=== PATIENT | female | born 1990 | race African-American/Black ===

== ENCOUNTER 2016-10-27 16:00 | Emergency (ER) | payer OTHER ==
[2016-10-27 16:27] VITALS: TEMP 99.1; BMI 44.9
[2016-10-27] MEDS ORDERED: FAMOTIDINE 20 MG/50 ML IVPB 20 MG in PREMIX 50 IVPB ONE (16:39)
[2016-10-27] MEDS ORDERED: MAG HYDROX/AL HYDROX/SIMETH 355 ML ORAL.SUSP PO ONE (16:39)
[2016-10-27] MEDS ORDERED: SODIUM CHLORIDE 1,000 ML IV ONE (16:39)
--- NOTE | 2016-10-27 16:43 | PDOC ---
History of Present Illness - General History Source: Patient Exam Limitations: No Limitations - History of Present Illness Initial Comments: 10/27/16 17:51 The patient is a 25 year old female with no significant past medical history who presents to the emergency department with abdominal pain. Patient states that the abdominal pain is localized to the upper abdomen, numbing and tingling in nature, constant, radiating across the abdomen and 'feels like something is moving around in there'. Patient has concerns about being , she states that she has been sexually active, and has taken 3 at home tests at home that were negative. She denies fever, chills, SOB, nausea, vomiting, diarrhea, constipation or back pain. <Moriah Anton - Last Filed: 10/27/16 17:51> <Nicolas Graf - Last Filed: 10/27/16 23:10> - General Chief Complaint: Chest Pain Stated Complaint: CHEST PAIN/ABD PAIN Time Seen by Provider: 10/27/16 16:14 Past History <Moriah Anton - Last Filed: 10/27/16 17:51> - Past Medical History Asthma: No Cancer: No Cardiac Disorders: No Diabetes: No HTN: No Seizures: No Thyroid Disease: No - Psycho/Social/Smoking Cessation Hx Suicidal Ideation: No Smoking History: Never smoked Have you smoked in the past 12 months: No Hx Alcohol Use: No Drug/Substance Use Hx: No Hx Substance Use Treatment: No <Nicolas Graf - Last Filed: 10/27/16 23:10> - Past Medical History Allergies/Adverse Reactions: Allergies Allergy/AdvReac Type Severity Reaction Status Date / Time No Known Allergies Allergy Verified 10/27/16 17:17 Home Medications: Ambulatory Orders NK [No Known Home Medication] 10/27/16 Review of Systems - Review of Systems Able to Perform ROS?: Yes Comments:: 10/27/16 17:52 CONSTITUTIONAL: No reported: Fever, Chills, Diaphoresis, Generalized Weakness, Malaise, Loss of Appetite HEENT: No reported: Rhinorrhea, Nasal Congestion, Throat Pain, Throat Swelling, Difficulty Swallowing, Mouth Swelling, Ear Pain, Eye Pain, Visual Changes CARDIOVASCULAR: No reported: Chest Pain, Syncope, Palpitations, Irregular Heart Rate, Lightheadedness, Peripheral Edema RESPIRATORY: No reported: Cough, Shortness of Breath, SOB with Exertion, Orthopnea, Wheezing , Stridor, Hemoptysis GASTROINTESTINAL: Present: abdominal pain No reported: Abdominal Distension, Nausea, Vomiting, Diarrhea, Constipation, Melena, Hematochezia GENITOURINARY: No reported: Dysuria, Frequency, Urgency, Hesitancy, Flank Pain, Genital Pain MUSCULOSKELETAL: No reported: Myalgia, Arthralgia, Joint Swelling, Back pain, Neck Pain SKIN: No reported: Rash, Itching, Pallor HEMEATOLOGIC/IMMUNOLOGIC: No reported: Easy Bleeding, Easy Bruising, Lymphadenopathy, Frequent infections ENDOCRINE: No reported: Unexplained Weight Gain, Unexplained Weight Loss, Heat Intolerance , Cold Intolerance NEUROLOGIC: No reported: Headache, Focal Weakness, Paresthesias, Vertigo, Lightheadedness, Unsteady Gait, Seizure, Mental Status Changes, Incontinence PSYCHIATRIC: No reported: Anxiety, Depression <Moriah Anton - Last Filed: 10/27/16 17:51> *Physical Exam - Vital Signs Last Vital Signs Temp Pulse Resp BP Pulse Ox 99.1 F 83 18 124/67 98 10/27/16 16:25 10/27/16 16:25 10/27/16 16:25 10/27/16 16:25 10/27/16 16:25 - Physical Exam Comments: 10/27/16 17:52 GENERAL: The patient is awake, alert, and fully oriented, Nontoxic - in no acute distress, obese HEAD: Normocephalic, atraumatic. EYES: extraocular movements intact, sclera anicteric, conjunctiva clear. ENT: Normal voice, Moist mucous membranes. NECK: Normal range of motion, supple LUNGS: Breath sounds equal, clear to auscultation bilaterally. No wheezes, no rhonchi, no rales. HEART: Regular rate and rhythm, normal S1 and S2 without murmur, rub or gallop. ABDOMEN: Soft, nontender, normoactive bowel sounds. No guarding, no rebound. No CVA tenderness EXTREMITIES: Normal range of motion, no edema. No clubbing or cyanosis. No cords, erythema, or tenderness. NEUROLOGICAL: No facial assymetry, Normal speech, PSYCH: Normal mood, normal affect. SKIN: Warm, Dry, normal turgor <Moriah Anton - Last Filed: 10/27/16 17:51> - Vital Signs Last Vital Signs Temp Pulse Resp BP Pulse Ox 99.1 F 83 18 124/67 98 10/27/16 16:25 10/27/16 16:25 10/27/16 16:25 10/27/16 16:25 10/27/16 16:25 <Nicolas Graf - Last Filed: 10/27/16 23:10> Heart Score/ECG Review - ECG Intrepretation Rhythm: Regular Rhythm - [place]: Normal - ECG Impressions Comment:: 10/27/16 23:09 Twelve-lead EKG was performed and reviewed by me. There is normal sinus rhythm with a normal rate. Rate of 80 The axis is normal. <Nicolas Graf - Last Filed: 10/27/16 23:10> ED Treatment Course - LABORATORY CBC & Chemistry Diagram: 10/27/16 17:05 10/27/16 17:05 - ADDITIONAL ORDERS Additional order review: Laboratory Results 10/27/16 10/27/16 17:05 15:20 Sodium 141 Potassium 3.8 Chloride 105 Carbon Dioxide 27 Anion Gap 9 BUN 6 L D Creatinine 0.8 Creat Clearance w eGFR > 60 Random Glucose 81 Calcium 9.1 Total Bilirubin 0.3 AST 17 D ALT 23 D Alkaline Phosphatase 76 D Total Protein 7.6 Albumin 3.7 Lipase 63 L Urine Color Yellow Urine Appearance Clear Urine pH 5.0 Urine Protein Negative Urine Glucose (UA) Negative Urine Ketones Negative Urine Blood 1+ H Urine Nitrite Negative Urine Bilirubin Negative Urine Urobilinogen Negative Ur Leukocyte Esterase Negative Urine RBC 17 Urine WBC 1 Ur Epithelial Cells Few Urine Mucus Rare Urine HCG, Qual Negative 10/27/16 17:05 RBC 4.48 MCV 76.6 L MCHC 31.1 L RDW 17.5 H D MPV 8.4 Neutrophils % 76.1 Lymphocytes % 16.0 D Monocytes % 5.3 Eosinophils % 2.0 Basophils % 0.6 - Medications Given in the ED: ED Medications Discontinued Medications Generic Name Dose Route Start Last Admin Trade Name Freq PRN Reason Stop Dose Admin Al Hydroxide/Mg Hydroxide 30 ml 10/27/16 16:39 10/27/16 17:15 Mylanta Suspension - PO 10/27/16 16:40 30 ml ONCE ONE Administration Famotidine/Sodium Chloride 20 50 mls @ 100 mls/hr 10/27/16 16:39 10/27/16 17:15 mg/ Miscellaneous IVPB 10/27/16 17:08 100 mls/hr ONCE ONE Administration Sodium Chloride 1,000 mls @ 1,000 mls/hr 10/27/16 16:39 10/27/16 17:11 Normal Saline - IV 10/27/16 17:38 1,000 mls/hr .Q1H ONE Administration <Moriah Anton - Last Filed: 10/27/16 17:51> - LABORATORY CBC & Chemistry Diagram: 10/27/16 17:05 10/27/16 17:05 <Nicolas Graf - Last Filed: 10/27/16 23:10> Medical Decision Making - Medical Decision Making 10/27/16 16:40 25y F presents for evaluation abdominal pain, pt states that she had th sensation of something 'moving around' in her abdomen and has a senation of tingling/numbness on her abdomen and chest. The pt does endorse feeling alittle dizzy when she stood up earlier. There is no associated cp, sob, n/v, hemoptysis, leg swelling, vag bleeding. The pt has an unremarkable exam. differential includes gastritis, , pancreatitis will obtain blood work including lipase, cbc, cmp, ua, hcg, ekg will give fluids, pepcid, maalox will raessess 10/27/16 19:40 labs reviewed noted for mild leukocytosis not preg no uti after discussion with the pt she erally just wants to find out whether she is . 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 I answered all of the patient's questions. The patient was satisfied with the care received and felt comfortable with the discharge plan and treatment plan. The patient will call their primary care physician within 24 hours to arrange follow-up and will return to the Emergency Department with any new, persistent or worsening symptoms. <Nicolas Graf - Last Filed: 10/27/16 23:10> *DC/Admit/Observation/Transfer - Attestations Scribe Attestion: 10/27/16 17:52 Documentation prepared by LILY Mclean, acting as biomedical manager for Nicolas Graf MD. <Moriah Anton - Last Filed: 10/27/16 17:51> - Discharge Dispostion Admit: No <Nicolas Graf - Last Filed: 10/27/16 23:10> Diagnosis at time of Disposition: Abdominal discomfort - Discharge Dispostion Disposition: HOME Condition at time of disposition: Improved - Referrals Referrals: Tameka Ramos MD [Primary Care Provider] - - Patient Instructions Printed Discharge Instructions: DI for Abdominal Pain-Adult Additional Instructions: Return to the emergency department immediately with ANY new, persistent or worsening symptoms including worsening abdominal pain, fevers, inability to tolerate oral intake, chest pain, shortness of breath or any other concerns. Stay well hydrated. You MUST call and follow up with your doctor tomorrow. Your emergency department visit is not complete without a followup with your doctor for reevaluation. Please make sure your doctor reviews the results of your emergency evaluation. Print Language: HONDURAN
[2016-10-27] MEDS ORDERED: FAMOTIDINE 20 MG/50 ML IVPB 50 ML IVPB ONE (17:12)
[2016-10-27] MEDS ORDERED: MAG HYDROX/AL HYDROX/SIMETH 30 ML UNIT-DOSE CUP ONE (17:12)
[2016-10-27 17:20] LABS: BASOPHIL 0.6 % (0-2.0); MCH 23.8 pg (25.7-33.7); MCHC 31.1 g/dl (32.0-36.0); MEAN CELL VOLUME 76.6 fl (80-96); MEAN PLT VOLUME 8.4 fl (7.5-11.1); NEUTROPHILS 76.1 % (42.8-82.8); PLATELET COUNT 379 K/MM3 (134-434); RDW 17.5 % (11.6-15.6); WHITE BLOOD COUNT 13.3 K/mm3 (4.0-10.0)
[2016-10-27 17:20] LABS: URINE APPEARANCE CLEAR; URINE BILIRUBIN NEGATIVE (NEGATIVE); URINE BLOOD 1+ (NEGATIVE); URINE COLOR YELLOW; URINE GLUCOSE (UA) NEGATIVE (NEGATIVE); URINE KETONE NEGATIVE (NEGATIVE); URINE LEUK ESTERASE NEGATIVE (NEGATIVE); URINE NITRITE NEGATIVE (NEGATIVE); URINE PROTEIN NEGATIVE (NEGATIVE); URINE UROBILINOGEN NEGATIVE E.U./dl (0.2-1.0)
[2016-10-27 17:21] LABS: URINE MUCUS RARE; URINE RBC 17 /hpf (0-3); URINE WBC 1 /hpf (3-5)
[2016-10-27 17:45] LABS: ALBUMIN 3.7 g/dl (3.4-5.0); ANION GAP 9 (8-16); BILIRUBIN,TOTAL 0.3 mg/dL (0.2-1.0); CALCIUM 9.1 mg/dL (8.5-10.1); CO2 27 mmol/L (21-32); COCKROFT - GAULT 207.825; CREATININE 0.8 mg/dL (0.55-1.02); GLUCOSE,RANDOM 81 mg/dL (74-106); SGOT/AST 17 U/L (15-37); SGPT/ALT 23 U/L (12-78); TOT PROT 7.6 g/dl (6.4-8.2)
[2016-10-27 17:46] LABS: ALK PHOS 76 U/L (45-117)
[2016-10-27 19:58] VITALS: BP 146/91; PULSE 82
--- NOTE | 2016-10-28 19:18 | EKG ---
Test Reason : Blood Pressure : / mmHG Vent. Rate : 080 BPM Atrial Rate : 080 BPM P-R Int : 180 ms QRS Dur : 100 ms QT Int : 380 ms P-R-T Axes : 067 030 038 degrees QTc Int : 438 ms POOR DATA QUALITY, INTERPRETATION MAY BE ADVERSELY AFFECTED NORMAL SINUS RHYTHM NORMAL ECG WHEN COMPARED WITH ECG OF 29-JUN-2015 11:02, NO SIGNIFICANT CHANGE WAS FOUND Confirmed by SERA ALEX, YECENIA ([id number]) on 10/28/2016 7:17:48 PM Referred By: Confirmed By:YECENIA ZAMORA MD
== END 2016-10-27 19:58 | disposition home or self-care (01) ==
LOC: JER 16:00
PROC: 3E023GC Introduction of Other Therapeutic Substance into Muscle, Percutaneous Approach (ICD-10-PCS; principal; 2016-10-27)
PROC: 3E0337Z Introduction of Electrolytic and Water Balance Substance into Peripheral Vein, Percutaneous Approach (ICD-10-PCS; 2016-10-27)
DX: R10.10 Upper abdominal pain, unspecified (principal); Z32.02 Encounter for pregnancy test, result negative
CPT/HCPCS: 36415; 80053; 81003; 81015; 83690; 84703; 85025; 93005; 93010; 96361; 96365; 99282-25

== ENCOUNTER 2017-03-28 08:28 | Emergency (ER) | payer OTHER ==
[2017-03-28 08:32] VITALS: BP 113/68; PULSE 95; TEMP 98.1; BMI 44.9
[2017-03-28] MEDS ORDERED: METOCLOPRAMIDE HCL 10 MG TABLET (FP) PO ONE ×2 (09:07→09:14)
[2017-03-28] MEDS ORDERED: diphenhydrAMINE HCL 25 MG CAPSULE (FP) PO ONE ×2 (09:08→09:14)
[2017-03-28] MEDS ORDERED: ALBUTEROL SO4 0.083% IH SOL 2.5 MG/3 ML VIAL.NEB. NEB ONE ×2 (09:26→09:29)
--- NOTE | 2017-03-28 09:50 | PDOC ---
History of Present Illness - General Chief Complaint: Headache Stated Complaint: MIGRAINE Time Seen by Provider: 03/28/17 08:47 History Source: Patient Exam Limitations: No Limitations - History of Present Illness Initial Comments: 03/28/17 09:45 26 yr female no pmhx c/o headache on and off for 2 months. Pt states she needs to use glasses but doesn't wear them. Pt denies historyof migraines, neg nvd neg fever. Pt also with cough that is making headaches worse. Severity: Yes: mild Associated Symptoms: denies: fever/chills, nausea/vomiting, ringing in ears, slurred speech, tingling in legs/feet, trouble walking, vision changes, weakness Past History - Past Medical History Allergies/Adverse Reactions: Allergies Allergy/AdvReac Type Severity Reaction Status Date / Time No Known Allergies Allergy Verified 03/28/17 08:32 Home Medications: Ambulatory Orders Albuterol Sulfate Inhaler - [Ventolin HFA Inhaler -] 1 - 2 inh PO Q4H #1 inhaler 03/28/17 Benzonatate [Tessalon Pearls -] 200 mg PO TID PRN #42 cap 03/28/17 Naproxen [Naprosyn -] 500 mg PO BID PRN #14 tablet 03/28/17 Asthma: No Cancer: No Cardiac Disorders: No COPD: No Diabetes: No HTN: No Seizures: No Thyroid Disease: No - Suicide/Smoking/Psychosocial Hx Smoking History: Never smoked Have you smoked in the past 12 months: No Hx Alcohol Use: No Drug/Substance Use Hx: No Hx Substance Use Treatment: No Neuro Specific PMHX - Complaint Specific PMHX Glaucoma: No Herniated Disk: No Laminectomy: No Migraine: No Multiple Sclerosis: No Neuropathy: No TIA: No Review of Systems - Review of Systems Able to Perform ROS?: Yes Is the patient limited Amharic proficient: No Constitutional: No: Symptoms Reported HEENTM: Yes: Symptoms Reported, Nose Congestion Respiratory: Yes: Cough Cardiac (ROS): No: Symptoms Reported ABD/GI: No: Symptoms Reported : No: Symptoms Reported Musculoskeletal: No: Symptoms Reported Integumentary: No: Symptoms Reported Neurological: Yes: See HPI, Headache *Physical Exam - Vital Signs Last Vital Signs Temp Pulse Resp BP Pulse Ox 98.1 F 95 H 20 113/68 100 03/28/17 08:29 03/28/17 08:29 03/28/17 08:29 03/28/17 08:29 03/28/17 08:29 - Physical Exam General Appearance: Yes: Nourished, Appropriately Dressed HEENT: positive: EOMI, NIVIA, TMs Normal Respiratory/Chest: positive: Lungs Clear, Normal Breath Sounds, Other (pos cough ) Cardiovascular: positive: Regular Rhythm, Regular Rate Gastrointestinal/Abdominal: positive: Normal Bowel Sounds, Soft Musculoskeletal: positive: Normal Inspection Extremity: positive: Normal Capillary Refill, Normal Inspection, Normal Range of Motion Integumentary: positive: Normal Color, Dry, Warm Neurologic: positive: Fully Oriented, Alert, Normal Mood/Affect, Normal Response , Motor Strength 5/5, Responsive (intact), Finger to Nose (intact). negative: Respond to painful stimul, EOM Palsy, Facial Droop, Numbness, Sensory Deficit, Confused, Disoriented ED Treatment Course - ADDITIONAL ORDERS Additional order review: Laboratory Results 03/28/17 09:01 Urine HCG, Qual Negative - Medications Given in the ED: ED Medications Discontinued Medications Generic Name Dose Route Start Last Admin Trade Name Shaun PRN Reason Stop Dose Admin Albuterol Sulfate 1 amp 03/28/17 09:26 03/28/17 09:33 Ventolin 0.083% Nebulizer Soln - NEB 03/28/17 09:27 1 amp ONCE ONE Administration Diphenhydramine HCl 25 mg 03/28/17 09:08 03/28/17 09:16 Benadryl - PO 03/28/17 09:09 25 mg ONCE ONE Administration Metoclopramide HCl 10 mg 03/28/17 09:07 03/28/17 09:16 Reglan - PO 03/28/17 09:08 10 mg ONCE ONE Administration Medical Decision Making - Medical Decision Making 03/28/17 09:47 cc: headache cough worse the past week no fever no vomiting no neck pain no focal deficit pt is Aox3 texting on cell phone appears comfortable stable vitals will give reglan, benadryl, albuterol follow up with PMD and the neurologist as needed *DC/Admit/Observation/Transfer Diagnosis at time of Disposition: Headache around the eyes, Cough in adult - Discharge Dispostion Disposition: HOME Condition at time of disposition: Good - Prescriptions Prescriptions: Naproxen [Naprosyn -] 500 mg PO BID PRN #14 tablet PRN Reason: Headache Benzonatate [Tessalon Pearls -] 200 mg PO TID PRN #42 cap PRN Reason: Cough Albuterol Sulfate Inhaler - [Ventolin HFA Inhaler -] 1 - 2 inh PO Q4H #1 inhaler - Referrals Referrals: Tameka Ramos MD [Primary Care Provider] - James Muniz MD [Staff Physician] - - Patient Instructions Additional Instructions: drink pleanty of water take naprosyn as directed for headache use the inhaler as directed for cough follow with your primary care in 3-5 days for follow up return to ER if any worsening symptoms or with if headaches continue
== END 2017-03-28 09:53 | disposition home or self-care (01) ==
LOC: JERFT 08:28
PROC: 3E0F7GC Introduction of Other Therapeutic Substance into Respiratory Tract, Via Natural or Artificial Opening (ICD-10-PCS; principal; 2017-03-28)
DX: R05 Cough (principal); R51 Headache
CPT/HCPCS: 84703; 99281-25

== ENCOUNTER 2017-05-28 09:11 | Emergency (ER) | payer OTHER ==
[2017-05-28 09:30] VITALS: BMI 44.9
[2017-05-28] MEDS ORDERED: FAMOTIDINE IV 20 MG/12 ML VIAL IVPUSH ONE (09:55)
[2017-05-28] MEDS ORDERED: MAG HYDROX/AL HYDROX/SIMETH 30 ML UNIT-DOSE CUP PO ONE (09:55)
[2017-05-28] MEDS ORDERED: ONDANSETRON 4 MG/2 ML VIAL IVPUSH ONE (10:02)
--- NOTE | 2017-05-28 10:02 | PDOC ---
History of Present Illness - General Chief Complaint: Pain Stated Complaint: ABD PAIN Time Seen by Provider: 05/28/17 09:38 History Source: Patient - History of Present Illness Timing/Duration: reports: intermittent Quality: reports: severe Past History - Past Medical History Allergies/Adverse Reactions: Allergies Allergy/AdvReac Type Severity Reaction Status Date / Time No Known Allergies Allergy Verified 05/28/17 09:22 Home Medications: Ambulatory Orders Famotidine [Pepcid] 20 mg PO DAILY #14 tablet 05/28/17 Mag Hydrox/Al Hydrox/Simeth [Mylanta Suspension -] 30 ml PO Q6H #1 bottle Ondansetron HCl [Zofran] 4 mg PO Q8H #12 tablet 05/28/17 Asthma: No Cancer: No Cardiac Disorders: No COPD: No Diabetes: No HTN: No Seizures: No Thyroid Disease: No - Suicide/Smoking/Psychosocial Hx Smoking History: Never smoked Have you smoked in the past 12 months: No Hx Alcohol Use: No Drug/Substance Use Hx: No Hx Substance Use Treatment: No Review of Systems - Review of Systems Constitutional: No: Chills, Fever Respiratory: No: Shortness of Breath Cardiac (ROS): No: Chest Pain ABD/GI: Yes: Nausea. No: Constipated, Diarrhea, Vomiting : No: Burning, Dysuria, Discharge, Flank Pain, Hematuria Neurological: Yes: Headache, Numbness, Dizziness. No: Weakness *Physical Exam - Vital Signs Last Vital Signs Temp Pulse Resp BP Pulse Ox 99 F 69 18 136/81 99 05/28/17 09:18 05/28/17 09:18 05/28/17 09:18 05/28/17 09:18 05/28/17 09:18 - Physical Exam General Appearance: Yes: Appropriately Dressed. No: Apparent Distress HEENT: positive: Normal Voice. negative: Scleral Icterus (R), Scleral Icterus ( L) Neck: positive: Supple Respiratory/Chest: positive: Lungs Clear, Normal Breath Sounds. negative: Respiratory Distress Cardiovascular: positive: Regular Rate, S1, S2 Gastrointestinal/Abdominal: positive: Normal Bowel Sounds, Tender (to epigastrium, no RUQ ttp). negative: Distended, Guarding, Rebound Musculoskeletal: negative: CVA Tenderness Integumentary: positive: Dry, Warm Neurologic: positive: Fully Oriented, Alert, Normal Mood/Affect, Motor Strength 5/5, Numbness (decreased sensation localized to L denominational only). negative: Facial Droop ED Treatment Course - LABORATORY CBC & Chemistry Diagram: 05/28/17 10:03 05/28/17 10:03 Medical Decision Making - Medical Decision Making 05/28/17 09:57 26-year-old morbidly obese female with no known past medical history here with multiple complaints. Patient primarily complaining of severe upper abdominal pain 1 week. Unable to describe intermittent but worse over the past 2 days and associated with bloating and nausea. Taking Advil with no relief. No changes in bowel movements, fever or chills. No history of similar pain. Patient also complaining of left retro-orbital pain with intermittent numbness to left denominational and dizziness that also started a week ago. No visual changes or extremity weakness/sensory changes See exam Possible gastritis, less likely acute jovan or renal colic -GI cocktail -labs L retro-orbital pain w/ numbness/dizziness Unclear etiology at this time, possible migrainous (of note, pt seen in ED 2 months ago for ALDRICH and dx w/ possible migraines-given neuro f/u), less likely CVA -pain control -reassess 05/28/17 12:29 Labs unremarkable. Patient reports improvement in headache with meds, but continues to complain of mid upper abdominal pain. Will continue to manage pain in ED 05/28/17 13:36 Pt reports improvement with meds and able to tolerate po. Will discharge with prescriptions and PMD follow-up *DC/Admit/Observation/Transfer Diagnosis at time of Disposition: Epigastric abdominal pain - Discharge Dispostion Disposition: HOME Condition at time of disposition: Improved - Prescriptions Prescriptions: Famotidine [Pepcid] 20 mg PO DAILY #14 tablet Mag Hydrox/Al Hydrox/Simeth [Mylanta Suspension -] 30 ml PO Q6H #1 bottle Ondansetron HCl [Zofran] 4 mg PO Q8H #12 tablet - Referrals Referrals: Taemka Ramos MD [Primary Care Provider] - - Patient Instructions Printed Discharge Instructions: Gastritis Additional Instructions: Take medication as prescribed. Please follow-up with your PMD in 1-2 weeks - Post Discharge Activity Forms/Work/School Notes: Back to Work
[2017-05-28] MEDS ORDERED: MAG HYDROX/AL HYDROX/SIMETH 30 ML UNIT-DOSE CUP ONE (10:04)
[2017-05-28] MEDS ORDERED: METOCLOPRAMIDE HCL INJECTION 10 MG/2 ML VIAL IVPB ONE (10:04)
[2017-05-28] MEDS ORDERED: ONDANSETRON 4 MG/2 ML VIAL ONE (10:04)
[2017-05-28] MEDS ORDERED: FAMOTIDINE 20 MG/50 ML IVPB 20 MG/50 ML MG IVPB ONE (10:05)
[2017-05-28 10:22] LABS: BASO % 0.7 % (0-2.0); EOS % 1.7 % (0-4.5); HEMATOCRIT 33.1 % (32.4-45.2); HEMOGLOBIN 10.1 GM/dL (10.7-15.3); LYMPH % 18.4 % (8-40); MCH 21.7 pg (25.7-33.7); MCHC 30.5 g/dl (32.0-36.0); MEAN CELL VOLUME 71.1 fl (80-96); MEAN PLT VOLUME 8.1 fl (7.5-11.1); MONO % 5.3 % (3.8-10.2); NEUT % 73.9 % (42.8-82.8); PLATELET COUNT 433 K/MM3 (134-434); RBC 4.66 M/mm3 (3.60-5.2); RDW 18.9 % (11.6-15.6); WHITE BLOOD COUNT 10.2 K/mm3 (4.0-10.0)
[2017-05-28] MEDS ORDERED: METOCLOPRAMIDE HCL INJECTION 10 MG/2 ML VIAL ONE (10:23)
[2017-05-28 10:24] LABS: URINE APPEARANCE CLEAR; URINE BILIRUBIN NEGATIVE (NEGATIVE); URINE BLOOD NEGATIVE (NEGATIVE); URINE COLOR YELLOW; URINE GLUCOSE (UA) NEGATIVE (NEGATIVE); URINE KETONE NEGATIVE (NEGATIVE); URINE LEUK ESTERASE NEGATIVE (NEGATIVE); URINE NITRITE NEGATIVE (NEGATIVE); URINE PROTEIN NEGATIVE (NEGATIVE); URINE UROBILINOGEN NEGATIVE mg/dL (0.2-1.0)
[2017-05-28 10:46] LABS: ALBUMIN 3.7 g/dl (3.4-5.0); ANION GAP 5 (8-16); BILIRUBIN,TOTAL 0.3 mg/dL (0.2-1.0); BLOOD UREA NITROGEN 6 mg/dL (7-18); CALCIUM 8.7 mg/dL (8.5-10.1); CHLORIDE 106 mmol/L (98-107); CO2 29 mmol/L (21-32); CREATININE 0.7 mg/dL (0.55-1.02); GLUCOSE,RANDOM 98 mg/dL (74-106); POTASSIUM 3.9 mmol/L (3.5-5.1); SGOT/AST 15 U/L (15-37); SGPT/ALT 24 U/L (12-78); SODIUM 140 mmol/L (136-145); TOT PROT 7.9 g/dl (6.4-8.2)
[2017-05-28 10:47] LABS: ALK PHOS 82 U/L (45-117)
[2017-05-28] MEDS ORDERED: RANITIDINE HCL 150 MG TABLET (FP) PO ONE (12:09)
[2017-05-28] MEDS ORDERED: SUCRALFATE 1 GM/10 ML UNIT DOSE CUPS PO ONE (12:09)
[2017-05-28] MEDS ORDERED: SUCRALFATE 1 GM TABLET (FP) ONE (12:24)
[2017-05-28 13:51] VITALS: BP 126/77; PULSE 78; TEMP 98.2
[2017-05-28] MEDS ORDERED: MAG HYDROX/ALH/SMC/DPHA/LIDO 240 ML MOUTHWASH MM SCH (18:00)
== END 2017-05-28 13:50 | disposition home or self-care (01) ==
LOC: JER 09:11
PROC: 3E033GC Introduction of Other Therapeutic Substance into Peripheral Vein, Percutaneous Approach (ICD-10-PCS; principal; 2017-05-28)
PROC: 3E033GC Introduction of Other Therapeutic Substance into Peripheral Vein, Percutaneous Approach (ICD-10-PCS; 2017-05-28)
PROC: 3E033GC Introduction of Other Therapeutic Substance into Peripheral Vein, Percutaneous Approach (ICD-10-PCS; 2017-05-28)
DX: R10.13 Epigastric pain (principal)
CPT/HCPCS: 36415; 80053; 81003; 84703; 85025; 96374; 96375; 99283-25

== ENCOUNTER 2017-12-14 16:34 | Emergency (ER) | payer OTHER ==
--- NOTE | 2017-12-14 17:19 | PDOC ---
Rapid Medical Evaluation Time Seen by Provider: 12/14/17 17:14 Medical Evaluation: Allergies Allergy/AdvReac Type Severity Reaction Status Date / Time No Known Allergies Allergy Verified 05/28/17 09:22 12/14/17 17:15 Pt. is a 27 y/o F who presents to the ED with one day of chest pain. She states the pain is on the L side and goes down her L arm. She states that she feels like her arm is going numb. Also c/o a headache. She states the pain feels better when she rubs the area. Exam: AAOx3, breathing easily. VSS. No gross neuro deficits Orders: EKG, labs, urine Pt to proceed to ED for further evaluation. Discharge Disposition - Diagnosis Chest pain - Referrals - Patient Instructions - Post Discharge Activity
[2017-12-14 17:20] VITALS: BP 131/90; PULSE 91; TEMP 98.9; BMI 43.2
[2017-12-14 17:47] LABS: BASO % 0.8 % (0-2.0); EOS % 1.3 % (0-4.5); HEMATOCRIT 34.9 % (32.4-45.2); HEMOGLOBIN 11.3 GM/dL (10.7-15.3); LYMPH % 22.2 % (8-40); MCH 25.1 pg (25.7-33.7); MCHC 32.4 g/dl (32.0-36.0); MEAN CELL VOLUME 77.5 fl (80-96); MEAN PLT VOLUME 8.6 fl (7.5-11.1); MONO % 5.9 % (3.8-10.2); NEUT % 69.8 % (42.8-82.8); PLATELET COUNT 349 K/MM3 (134-434); RDW 18.1 % (11.6-15.6); WHITE BLOOD COUNT 12.5 K/mm3 (4.0-10.0)
[2017-12-14 18:03] LABS: INR 1.11 (0.82-1.09); PROTHROMBIN TIME (PATIENT) 12.5 SEC (9.7-13.0)
[2017-12-14 18:17] LABS: ALBUMIN 3.8 g/dl (3.4-5.0); ALK PHOS 82 U/L (45-117); ANION GAP 8 (8-16); BILIRUBIN,TOTAL 0.1 mg/dL (0.2-1.0); BLOOD UREA NITROGEN 8 mg/dL (7-18); CALCIUM 9.1 mg/dL (8.5-10.1); CHLORIDE 107 mmol/L (98-107); CO2 26 mmol/L (21-32); CREATININE 0.7 mg/dL (0.55-1.02); GLUCOSE,RANDOM 80 mg/dL (74-106); POTASSIUM 3.8 mmol/L (3.5-5.1); SGOT/AST 15 U/L (15-37); SGPT/ALT 26 U/L (12-78); SODIUM 141 mmol/L (136-145); TOT PROT 7.8 g/dl (6.4-8.2)
[2017-12-14 18:58] LABS: HCG,QUALITATIVE URINE NEGATIVE
[2017-12-14 19:13] LABS: URINE APPEARANCE CLEAR; URINE BILIRUBIN NEGATIVE (<2.0 mg/dL); URINE COLOR YELLOW; URINE GLUCOSE (UA) NEGATIVE (NEGATIVE); URINE KETONE NEGATIVE (NEGATIVE); URINE LEUK ESTERASE NEGATIVE (NEGATIVE); URINE NITRITE NEGATIVE (NEGATIVE); URINE PROTEIN NEGATIVE (NEGATIVE); URINE UROBILINOGEN NEGATIVE mg/dL (0.2-1.0)
--- NOTE | 2017-12-14 20:20 | PDOC ---
History of Present Illness - General History Source: Patient Exam Limitations: No Limitations - History of Present Illness Initial Comments: 12/14/17 20:31 The patient is a 27 year old female, with no significant PMH, who presents to the emergency department with 24 hours of intermittent midsternal chest pain. The patient states the intermittent chest pain began last night at rest with associated left arm numbness sensation. 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 The patient describes the chest pain as a chest tightness sensation. The patient denies any chance of but reports she takes vitamins for iron. The patient states her LMP was normal. The patient states she has a family history of hypertension and diabetes. The patient states she has been under increased stressors secondary to the loss of her grandmother. The patient denies any recent surgery or travel. The patient denies any recent leg swelling or calf tenderness. The patient denies diaphoresis, palpitations, shortness of breath, headache and dizziness. Denies fever, chills, nausea, vomit, diarrhea and constipation. Denies dysuria, frequency, urgency and hematuria. Allergies: NKA Past surgical history: Social history: No reported <David Gomez - Last Filed: 12/14/17 20:31> <Julianna Vincent - Last Filed: 12/15/17 05:14> - General Chief Complaint: Chest Pain Stated Complaint: CHEST PAIN Time Seen by Provider: 12/14/17 17:14 Past History <David Gomez - Last Filed: 12/14/17 20:31> - Past Medical History Asthma: No Cancer: No Cardiac Disorders: No COPD: No Diabetes: No HTN: No Seizures: No Thyroid Disease: No - Suicide/Smoking/Psychosocial Hx Smoking History: Never smoked Have you smoked in the past 12 months: No Hx Alcohol Use: No Drug/Substance Use Hx: No Hx Substance Use Treatment: No <Julianna Vincent - Last Filed: 12/15/17 05:14> - Past Medical History Allergies/Adverse Reactions: Allergies Allergy/AdvReac Type Severity Reaction Status Date / Time No Known Allergies Allergy Verified 12/14/17 17:17 Home Medications: Ambulatory Orders Famotidine [Pepcid] 20 mg PO DAILY #14 tablet 05/28/17 Mag Hydrox/Al Hydrox/Simeth [Mylanta Suspension -] 30 ml PO Q6H #1 bottle Ondansetron HCl [Zofran] 4 mg PO Q8H #12 tablet 05/28/17 Review of Systems - Review of Systems Comments:: 12/14/17 20:32 GENERAL/CONSTITUTIONAL: No fever or chills. No weakness. HEAD, EYES, EARS, NOSE AND THROAT: No change in vision. No ear pain or discharge. No sore throat. CARDIOVASCULAR: +Chest pain. No shortness of breath. RESPIRATORY: No cough, wheezing, or hemoptysis. GASTROINTESTINAL: No nausea, vomiting, diarrhea or constipation. GENITOURINARY: No dysuria, frequency, or change in urination. MUSCULOSKELETAL: No joint or muscle swelling or pain. No neck or back pain. SKIN: No rash NEUROLOGIC: +Left arm numbness sensation. No headache, vertigo, loss of consciousness. ENDOCRINE: No increased thirst. No abnormal weight change. HEMATOLOGIC/LYMPHATIC: No anemia, easy bleeding, or history of blood clots. ALLERGIC/IMMUNOLOGIC: No hives or skin allergy. <David Gomez - Last Filed: 12/14/17 20:31> *Physical Exam - Vital Signs Last Vital Signs Temp Pulse Resp BP Pulse Ox 98.9 F 91 H 18 131/90 99 12/14/17 17:17 12/14/17 17:17 12/14/17 17:17 12/14/17 17:17 12/14/17 17:17 - Physical Exam Comments: 12/14/17 20:32 GENERAL: Awake, alert, and fully oriented, in no acute distress HEAD: No signs of trauma EYES: PERRLA, EOMI, sclera anicteric, conjunctiva clear ENT: Auricles normal inspection, hearing grossly normal, nares patent, oropharynx clear without exudates. Moist mucosa NECK: Normal ROM, supple, no lymphadenopathy, JVD, or masses LUNGS: Breath sounds equal, clear to auscultation bilaterally. No wheezes, and no crackles HEART: Regular rate and rhythm, normal S1 and S2, no murmurs, rubs or gallops ABDOMEN: Soft, nontender, normoactive bowel sounds. No guarding, no rebound. No masses EXTREMITIES: Normal range of motion, no edema. No clubbing or cyanosis. No cords, erythema, or tenderness NEUROLOGICAL: Cranial nerves II through XII grossly intact. Normal speech, normal gait SKIN: Warm, Dry, normal turgor, no rashes or lesions noted. <David Gomez - Last Filed: 12/14/17 20:31> - Vital Signs Last Vital Signs Temp Pulse Resp BP Pulse Ox 98.9 F 91 H 18 131/90 99 12/14/17 17:17 12/14/17 17:17 12/14/17 17:17 12/14/17 17:17 12/14/17 17:17 <Julianna Vincent - Last Filed: 12/15/17 05:14> Heart Score/ECG Review - ECG Intrepretation Rhythm: Regular Rhythm - [place]: Normal - P and DC Delta Wave(s) Present: No WPW: No - QRS Poor R Wave Progression: No Q Wave Present: No - ST and T Early Repolarization: No Non Specific ST-T Wave changes: No Flattened T Waves: No Prolonged Q-T Interval: No - ECG Impressions Normal ECG: Yes Non-specific ST Elevation: No Ischemic Changes: No Torsades sharron Pointes: No WPW: No <Jluianna Vincent - Last Filed: 12/15/17 05:14> ED Treatment Course - LABORATORY CBC & Chemistry Diagram: 12/14/17 17:40 12/14/17 17:40 - ADDITIONAL ORDERS Additional order review: Laboratory Results 12/14/17 12/14/17 12/14/17 17:48 17:40 17:40 PT with INR INR Sodium 141 Potassium 3.8 Chloride 107 Carbon Dioxide 26 Anion Gap 8 BUN 8 Creatinine 0.7 Creat Clearance w eGFR > 60 Random Glucose 80 Calcium 9.1 Total Bilirubin 0.1 L AST 15 ALT 26 Alkaline Phosphatase 82 Creatine Kinase 249 H Creatine Kinase Index 0.6 CK-MB (CK-2) 1.51 Troponin I < 0.02 Total Protein 7.8 Albumin 3.8 Urine Color Yellow Urine Appearance Clear Urine pH 6.0 D Ur Specific [place] 1.029 Urine Protein Negative Urine Glucose (UA) Negative Urine Ketones Negative Urine Blood Negative Urine Nitrite Negative Urine Bilirubin Negative Urine Urobilinogen Negative Ur Leukocyte Esterase Negative Urine HCG, Qual Negative 12/14/17 17:40 PT with INR 12.50 INR 1.11 Sodium Potassium Chloride Carbon Dioxide Anion Gap BUN Creatinine Creat Clearance w eGFR Random Glucose Calcium Total Bilirubin AST ALT Alkaline Phosphatase Creatine Kinase Creatine Kinase Index CK-MB (CK-2) Troponin I Total Protein Albumin Urine Color Urine Appearance Urine pH Ur Specific [place] Urine Protein Urine Glucose (UA) Urine Ketones Urine Blood Urine Nitrite Urine Bilirubin Urine Urobilinogen Ur Leukocyte Esterase Urine HCG, Qual 12/14/17 17:40 RBC 4.50 MCV 77.5 L MCHC 32.4 RDW 18.1 H MPV 8.6 Neutrophils % 69.8 Lymphocytes % 22.2 D Monocytes % 5.9 Eosinophils % 1.3 Basophils % 0.8 <GomezDavid - Last Filed: 12/14/17 20:31> - LABORATORY CBC & Chemistry Diagram: 12/14/17 17:40 12/14/17 17:40 - ADDITIONAL ORDERS Additional order review: Laboratory Results 12/14/17 12/14/17 12/14/17 17:48 17:40 17:40 PT with INR INR Sodium 141 Potassium 3.8 Chloride 107 Carbon Dioxide 26 Anion Gap 8 BUN 8 Creatinine 0.7 Creat Clearance w eGFR > 60 Random Glucose 80 Calcium 9.1 Total Bilirubin 0.1 L AST 15 ALT 26 Alkaline Phosphatase 82 Creatine Kinase 249 H Creatine Kinase Index 0.6 CK-MB (CK-2) 1.51 Troponin I < 0.02 Total Protein 7.8 Albumin 3.8 Urine Color Yellow Urine Appearance Clear Urine pH 6.0 D Ur Specific [place] 1.029 Urine Protein Negative Urine Glucose (UA) Negative Urine Ketones Negative Urine Blood Negative Urine Nitrite Negative Urine Bilirubin Negative Urine Urobilinogen Negative Ur Leukocyte Esterase Negative Urine HCG, Qual Negative 12/14/17 17:40 PT with INR 12.50 INR 1.11 Sodium Potassium Chloride Carbon Dioxide Anion Gap BUN Creatinine Creat Clearance w eGFR Random Glucose Calcium Total Bilirubin AST ALT Alkaline Phosphatase Creatine Kinase Creatine Kinase Index CK-MB (CK-2) Troponin I Total Protein Albumin Urine Color Urine Appearance Urine pH Ur Specific [place] Urine Protein Urine Glucose (UA) Urine Ketones Urine Blood Urine Nitrite Urine Bilirubin Urine Urobilinogen Ur Leukocyte Esterase Urine HCG, Qual 12/14/17 17:40 RBC 4.50 MCV 77.5 L MCHC 32.4 RDW 18.1 H MPV 8.6 Neutrophils % 69.8 Lymphocytes % 22.2 D Monocytes % 5.9 Eosinophils % 1.3 Basophils % 0.8 <Julianna Vincent - Last Filed: 12/15/17 05:14> Medical Decision Making - Medical Decision Making 12/15/17 05:11 Pt comes with chest pain that is MSCP and left sided CP with some arm numbness on the left side. 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 She has a 3yo who is 30 lbs and lifts the child regularly. Exam normal, labs normal, EKG NSR; Pt's CXR is normal and she was reassured and sent home. Pain is atypical. Follow with PMD. <Julianna Vincent - Last Filed: 12/15/17 05:14> *DC/Admit/Observation/Transfer - Attestations Scribe Attestion: 12/14/17 20:33 Documentation prepared by David Gomez, acting as director medical economics for Julianna Vincent MD. <David Gomez - Last Filed: 12/14/17 20:31> - Discharge Dispostion Decision to Admit order: No <Julianna Vincent - Last Filed: 12/15/17 05:14> Diagnosis at time of Disposition: Chest pain, Atypical chest pain, Obesity with body mass index of 30.0-39.9 - Discharge Dispostion Disposition: HOME Condition at time of disposition: Stable - Referrals Referrals: Tameka Ramos MD [Primary Care Provider] - - Patient Instructions Printed Discharge Instructions: Weight Loss Aids (Alternative Therapy), DI for Atypical Chest Pain, Obesity and Specific Foods Linked With Risk of Type 2 Diabetes - Post Discharge Activity
--- NOTE | 2017-12-15 10:09 | EKG ---
Test Reason : Blood Pressure : / mmHG Vent. Rate : 072 BPM Atrial Rate : 072 BPM P-R Int : 152 ms QRS Dur : 100 ms QT Int : 378 ms P-R-T Axes : 041 043 033 degrees QTc Int : 413 ms NORMAL SINUS RHYTHM WITH SINUS ARRHYTHMIA NORMAL ECG WHEN COMPARED WITH ECG OF 27-OCT-2016 16:54, NO SIGNIFICANT CHANGE WAS FOUND Confirmed by LUIS FOWLER MD ([id number]) on 12/15/2017 10:08:32 AM Referred By: Confirmed By:LUIS FOWLER MD
== END 2017-12-14 20:38 | disposition home or self-care (01) ==
LOC: JER 16:34
DX: R07.89 Other chest pain (principal); E66.9 Obesity, unspecified; Z68.41 Body mass index [BMI] 40.0-44.9, adult
CPT/HCPCS: 36415; 71046-TC-FY; 80053; 81003; 82550; 82553; 84484; 84703; 85025; 85610; 93005; 93010; 99284-25

== ENCOUNTER 2018-03-11 09:03 | Emergency (ER) | payer OTHER ==
[2018-03-11 09:16] VITALS: BP 106/69; PULSE 64; TEMP 98.7; BMI 43.2
--- NOTE | 2018-03-11 10:16 | PDOC ---
History of Present Illness - General Chief Complaint: Cold Symptoms Stated Complaint: COUGH, HEADACHE Time Seen by Provider: 03/11/18 09:55 History Source: Patient Exam Limitations: No Limitations - History of Present Illness Initial Comments: 03/11/18 10:34 Patient came for evaluation of chest tightness, wheezing, and moist nonproductive cough 2 days. States is progressively worsened and no relief with [id number] cough medications. Denies fever or earache or sore throat. States father is ilL with same Timing/Duration: reports: just prior to arrival, getting worse Severity: reports: moderate Modifying Factors: improves with: coughing Associated Symptoms: reports: chest pain/soreness, cough, earache, nasal congestion, nasal drainage Past History - Travel Traveled outside of the country in the last 30 days: No Close contact w/someone who was outside of country & ill: No - Past Medical History Allergies/Adverse Reactions: Allergies Allergy/AdvReac Type Severity Reaction Status Date / Time No Known Allergies Allergy Verified 03/11/18 09:14 Home Medications: Ambulatory Orders Albuterol Sulfate Inhaler - [Ventolin HFA Inhaler -] 1 - 2 inh PO Q4H #1 inhaler 03/11/18 predniSONE [Deltasone -] 20 mg PO BID #8 tablet 03/11/18 Asthma: No Cancer: No Cardiac Disorders: No COPD: No Diabetes: No HTN: No Seizures: No Thyroid Disease: No - Suicide/Smoking/Psychosocial Hx Smoking History: Never smoked Have you smoked in the past 12 months: No Information on smoking cessation initiated: No Hx Alcohol Use: No Drug/Substance Use Hx: No Substance Use Type: None Hx Substance Use Treatment: No Review of Systems - Review of Systems Able to Perform ROS?: Yes Is the patient limited Croatian proficient: Yes Constitutional: Yes: Symptoms Reported, See HPI, Malaise. No: Fever HEENTM: Yes: Symptoms Reported, See HPI, Nose Congestion Respiratory: Yes: Symptoms reported, See HPI, Cough, Wheezing Cardiac (ROS): No: Symptoms Reported ABD/GI: Yes: Symptoms Reported, See HPI Musculoskeletal: Yes: See HPI. No: Symptoms Reported Integumentary: Yes: See HPI. No: Symptoms Reported All Other Systems: Reviewed and Negative *Physical Exam - Vital Signs Last Vital Signs Temp Pulse Resp BP Pulse Ox 98.7 F 64 18 106/69 100 03/11/18 09:14 03/11/18 09:14 03/11/18 09:14 03/11/18 09:14 03/11/18 09:14 - Physical Exam General Appearance: Yes: Nourished, Appropriately Dressed, Apparent Distress, Mild Distress, Moderate Distress HEENT: positive: EOMI, NIVIA, TMs Normal (congested but landmarks easily visualized) Neck: positive: Supple, Lymphadenopathy (R), Lymphadenopathy (L). negative: Tender Respiratory/Chest: positive: Decreased Breath Sounds, Wheezing (tight inspiratory and expiratory breath sounds with moist nonproductive cough). negative: Lungs Clear Cardiovascular: positive: Regular Rhythm Gastrointestinal/Abdominal: positive: Normal Bowel Sounds, Soft. 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 *DC/Admit/Observation/Transfer Diagnosis at time of Disposition: Upper respiratory infection, acute - Discharge Dispostion Disposition: HOME Condition at time of disposition: Stable Decision to Admit order: No - Prescriptions Prescriptions: Albuterol Sulfate Inhaler - [Ventolin HFA Inhaler -] 1 - 2 inh PO Q4H #1 inhaler predniSONE [Deltasone -] 20 mg PO BID #8 tablet - Referrals Referrals: Tameka Ramos MD [Primary Care Provider] - - Patient Instructions Printed Discharge Instructions: DI for Viral Upper Respiratory Infection -- Adult Additional Instructions: Rest, drink lots of fluids: Teas, water, soups, Pedialyte Saltwater gargles Steamy showers/seem to face break up mucus Avoid contact with others until fevers and cough resolved Lots of handwashing and good hygiene Continue [id number] medications for symptomatic relief Tylenol or Motrin for fever and pain Continue albuterol nebulizers every 4-6 hours for the next 2 days then as needed for continued cough Prednisone as directed until completed Followup with private physician in one to 2 days Return to emergency department / pediatric hospital for worsened symptoms, fevers, dehydration - Post Discharge Activity Forms/Work/School Notes: Back to Work
[2018-03-11] MEDS ORDERED: predniSONE 20 MG TABLET (UD) ONE (10:25)
[2018-03-11] MEDS ORDERED: ALBUTEROL SO4 2.5/IPRATROPIUM 0.5 INH SOL 3 ML VIAL.NEB. NEB ONE ×2 (10:25→10:35)
[2018-03-11] MEDS ORDERED: predniSONE 20 MG TABLET (UD) PO ONE (10:35)
== END 2018-03-11 11:17 | disposition home or self-care (01) ==
LOC: JERFT 09:03
PROC: 3E0F7GC Introduction of Other Therapeutic Substance into Respiratory Tract, Via Natural or Artificial Opening (ICD-10-PCS; principal; 2018-03-11)
DX: J02.9 Acute pharyngitis, unspecified (principal); R51 Headache
CPT/HCPCS: 94640; 99281-25

== ENCOUNTER 2018-05-25 20:55 | Emergency (ER) | payer SELFPAY ==
[2018-05-25 21:09] VITALS: BP 130/68; PULSE 104; TEMP 102.5; BMI 41.5
--- NOTE | 2018-05-25 21:48 | PDOC ---
History of Present Illness - General Chief Complaint: Back Pain Stated Complaint: BACK PAIN, ABDOMINAL AND FOOT PAIN Time Seen by Provider: 05/25/18 21:45 History Source: Patient - History of Present Illness Initial Comments: 05/25/18 22:27 27 year old female c/o right flank pain, nasal congestion x1 days and noted to have fever today. denies Past History - Past Medical History Allergies/Adverse Reactions: Allergies Allergy/AdvReac Type Severity Reaction Status Date / Time No Known Allergies Allergy Verified 05/25/18 21:09 Home Medications: Ambulatory Orders NK [No Known Home Medication] 05/25/18 Asthma: No Cancer: No Cardiac Disorders: No COPD: No Diabetes: No HTN: No Seizures: No Thyroid Disease: No - Suicide/Smoking/Psychosocial Hx Smoking History: Never smoked Have you smoked in the past 12 months: No Hx Alcohol Use: No Drug/Substance Use Hx: No Substance Use Type: None Hx Substance Use Treatment: No *Physical Exam - Vital Signs Last Vital Signs Temp Pulse Resp BP Pulse Ox 102.5 F H 104 H 18 130/68 98 05/25/18 21:05 05/25/18 21:05 05/25/18 21:05 05/25/18 21:05 05/25/18 21:05 Moderate Sedation - Procedure Monitoring Vital Signs: Procedure Monitoring Vital Signs Temperature 102.5 F H 05/25/18 21:05 Pulse Rate 104 H 05/25/18 21:05 Respiratory Rate 18 05/25/18 21:05 Blood Pressure 130/68 05/25/18 21:05 O2 Sat by Pulse Oximetry (%) 98 05/25/18 21:05 Medical Decision Making - Medical Decision Making 05/25/18 22:50 patient febrile with + UA. right flank pain. spiral CT labs, blood culture pending. 05/25/18 22:50 05/25/18 22:51 patient signed out to Avi Ramsay Np *DC/Admit/Observation/Transfer Diagnosis at time of Disposition: SIRS (systemic inflammatory response syndrome) - Referrals Referrals: Tameka Ramos MD [Primary Care Provider] - - Patient Instructions - Post Discharge Activity
[2018-05-25] MEDS ORDERED: ACETAMINOPHEN 325 MG TABLET (FP) PO ONE (21:50)
[2018-05-25] MEDS ORDERED: ACETAMINOPHEN 325 MG TABLET (FP) ONE (21:57)
[2018-05-25 22:18] LABS: URINE APPEARANCE CLEAR; URINE BILIRUBIN NEGATIVE (<2.0 mg/dL); URINE COLOR LTYELLOW; URINE GLUCOSE (UA) NEGATIVE (NEGATIVE); URINE KETONE NEGATIVE (NEGATIVE); URINE LEUK ESTERASE 1+ (NEGATIVE); URINE NITRITE NEGATIVE (NEGATIVE); URINE PROTEIN NEGATIVE (NEGATIVE)
[2018-05-25 22:36] LABS: EPI CELLS RARE /HPF (FEW); URINE MUCUS MANY
[2018-05-25] MEDS ORDERED: SODIUM CHLORIDE 0.9% 500 ML INFUS.BAG IV ONE (22:47)
--- NOTE | 2018-05-25 23:20 | PDOC ---
*Physical Exam - Vital Signs Last Vital Signs Temp Pulse Resp BP Pulse Ox 102.5 F H 104 H 18 130/68 98 05/25/18 21:05 05/25/18 21:05 05/25/18 21:05 05/25/18 21:05 05/25/18 21:05 ED Treatment Course - LABORATORY CBC & Chemistry Diagram: 05/26/18 01:41 05/26/18 01:41 - ADDITIONAL ORDERS Additional order review: Laboratory Results 05/25/18 21:49 Urine Color Ltyellow Urine Appearance Clear Urine pH 6.0 Ur Specific [place] 1.016 Urine Protein Negative Urine Glucose (UA) Negative Urine Ketones Negative Urine Blood Negative Urine Nitrite Negative Urine Bilirubin Negative Urine Urobilinogen 2.0 H Ur Leukocyte Esterase 1+ H Urine WBC (Auto) 20 Urine RBC (Auto) None Ur Epithelial Cells Rare Urine Mucus Many - Medications Given in the ED: ED Medications Discontinued Medications Generic Name Dose Route Start Last Admin Trade Name Freq PRN Reason Stop Dose Admin Acetaminophen 975 mg 05/25/18 21:50 05/25/18 21:59 Tylenol - PO 05/25/18 21:51 975 mg ONCE ONE Administration Progress Note - Progress Note Progress Note: Received signout from nurse practitioner Suhail Michel this a 27-year-old female with right flank pain and nasal congestion one day. Vital signs on arrival reveal heart rate of 104 and a temperature of 102.5F. Urinalysis suggested of urinary tract infection. Patient is pending sepsis workup including CAT scan of the belly to evaluate for stone and hydronephrosis. Medical Decision Making - Medical Decision Making 05/26/18 03:13 Laboratory testing is unremarkable. CT as read by imaging simonizer: Tiny nonobstructing right renal stone. No right or left ureteral stone or urinary tract obstruction. I'll give the patient 1 dose of ceftriaxone IV now and discharge on Keflex 500 3 times a day for the next 10 days. I discussed the physical exam findings, ancillary test results and final diagnoses with the patient. I answered all of the patient's questions. The patient was satisfied with the care received and felt comfortable with the discharge plan and treatment plan. The patient will call their primary care physician within 24 hours to arrange follow-up and will return to the Emergency Department with any new, persistent or worsening symptoms. *DC/Admit/Observation/Transfer Diagnosis at time of Disposition: SIRS (systemic inflammatory response syndrome), Pyelonephritis - Discharge Dispostion Disposition: HOME Condition at time of disposition: Stable Decision to Admit order: No - Prescriptions Prescriptions: Cephalexin Monohydrate [Keflex -] 500 mg PO Q8H #30 capsule - Referrals Referrals: Tameka Ramos MD [Primary Care Provider] - - Patient Instructions - Post Discharge Activity Forms/Work/School Notes: Back to Work
[2018-05-25 23:31] LABS: HCG,QUALITATIVE URINE Negative
[2018-05-26 02:10] LABS: BASO % 0.6 % (0-2.0); EOS % 0.4 % (0-4.5); HEMATOCRIT 29.5 % (32.4-45.2); HEMOGLOBIN 10.1 GM/dL (10.7-15.3); LYMPH % 17.4 % (8-40); MCH 25.8 pg (25.7-33.7); MCHC 34.2 g/dl (32.0-36.0); MEAN CELL VOLUME 75.5 fl (80-96); MEAN PLT VOLUME 8.7 fl (7.5-11.1); MONO % 12.8 % (3.8-10.2); NEUT % 68.8 % (42.8-82.8); PLATELET COUNT 320 K/MM3 (134-434); RBC 3.91 M/mm3 (3.60-5.2); RDW 17.4 % (11.6-15.6); WHITE BLOOD COUNT 7.2 K/mm3 (4.0-10.0)
[2018-05-26 02:44] LABS: VENOUS PC02 40.1 mmHg (38-52); VENOUS PH 7.42 (7.32-7.42); VENOUS PO2 66.6 mmHg (28-48)
[2018-05-26 03:03] LABS: ALBUMIN 3.5 g/dl (3.4-5.0); ALK PHOS 71 U/L (45-117); ANION GAP 10 MMOL/L (8-16); BILIRUBIN,TOTAL 0.2 mg/dL (0.2-1); BLOOD UREA NITROGEN 8 mg/dL (7-18); CALCIUM 8.1 mg/dL (8.5-10.1); CHLORIDE 104 mmol/L (98-107); CO2 24 mmol/L (21-32); CREATININE 0.8 mg/dL (0.55-1.3); GLUCOSE,RANDOM 98 mg/dL (74-106); POTASSIUM 3.7 mmol/L (3.5-5.1); SGOT/AST 17 U/L (15-37); SGPT/ALT 20 U/L (13-61); SODIUM 137 mmol/L (136-145); TOT PROT 7.2 g/dl (6.4-8.2)
[2018-05-26] MEDS ORDERED: CEFTRIAXONE 1,000 MG in DEXTROSE 5%-WATER - 50 ML IVPB ONE (03:11)
[2018-05-26] MEDS ORDERED: CEFTRIAXONE 1 GM in DEXTROSE 5%-WATER - 50 ML IVPB ONE (03:30)
[2018-05-26] MEDS ORDERED: ACETAMINOPHEN 500 MG TABLET (FP) PO ONE (03:40)
[2018-05-26] MEDS ORDERED: ACETAMINOPHEN 325 MG TABLET (FP) ONE (03:44)
== END 2018-05-26 04:08 | disposition home or self-care (01) ==
LOC: JERFT 20:55 → JER 20:55
DX: N12 Tubulo-interstitial nephritis, not specified as acute or chronic (principal)
CPT/HCPCS: 71046-TC-FY; 74176; 80053; 81003; 81015; 82803; 83605; 84484; 84703; 85025; 87040; 87070; 87086; 87804; 87880; 99281-25

== ENCOUNTER 2018-08-06 08:57 | Emergency (ER) | payer OTHER ==
[2018-08-06 09:06] VITALS: BP 117/71; PULSE 97; TEMP 99.6; BMI 41.5
--- NOTE | 2018-08-06 09:34 | PDOC ---
History of Present Illness - General Chief Complaint: Rash Stated Complaint: LOWER BACK PAIN Time Seen by Provider: 08/06/18 09:14 Past History - Travel Traveled outside of the country in the last 30 days: No Close contact w/someone who was outside of country & ill: No - Past Medical History Allergies/Adverse Reactions: Allergies Allergy/AdvReac Type Severity Reaction Status Date / Time shellfish derived Allergy Verified 08/06/18 09:03 Home Medications: Ambulatory Orders Cephalexin Monohydrate [Keflex -] 500 mg PO BID #14 capsule 08/06/18 Sulfamethoxazole/Trimethoprim [Bactrim Ds -] 1 tab PO BID #14 tablet 08/06/18 Asthma: No Cancer: No Cardiac Disorders: No COPD: No Diabetes: No HTN: No Seizures: No Thyroid Disease: No - Immunization History Immunization Up to Date: Yes - Suicide/Smoking/Psychosocial Hx Smoking History: Never smoked Have you smoked in the past 12 months: No Hx Alcohol Use: No Drug/Substance Use Hx: No Substance Use Type: None Hx Substance Use Treatment: No Review of Systems - Review of Systems Able to Perform ROS?: Yes Comments:: 08/06/18 09:32 CONSTITUTIONAL: Absent: fever, chills, diaphoresis, generalized weakness, malaise, loss of appetite SKIN: Present: rash Absent: itching, pallor NEUROLOGIC: Absent: headache, focal weakness or paresthesias, dizziness, unsteady gait, seizure, mental status changes, bladder or bowel incontinence PSYCHIATRIC: Absent: anxiety, depression, suicidal or homicidal ideation, hallucinations. Is the patient limited [place]an proficient: No *Physical Exam - Vital Signs Last Vital Signs Temp Pulse Resp BP Pulse Ox 99.6 F 97 H 18 117/71 99 08/06/18 09:03 08/06/18 09:03 08/06/18 09:03 08/06/18 09:03 08/06/18 09:03 - Physical Exam Comments: 08/06/18 09:33 GENERAL: The patient is awake, alert, and fully oriented, in no acute distress. HEAD: Normal with no signs of trauma. EYES: Pupils equal, round and reactive to light, extraocular movements intact, sclera anicteric, conjunctiva clear. EXTREMITIES: Normal range of motion, no edema. NEUROLOGICAL: Normal speech, normal gait. PSYCH: Normal mood, normal affect. SKIN: Warm, Dry, normal turgor, no rashes or lesions noted. Moderate Sedation - Procedure Monitoring Vital Signs: Procedure Monitoring Vital Signs Temperature 99.6 F 08/06/18 09:03 Pulse Rate 97 H 08/06/18 09:03 Respiratory Rate 18 08/06/18 09:03 Blood Pressure 117/71 08/06/18 09:03 O2 Sat by Pulse Oximetry (%) 99 08/06/18 09:03 *DC/Admit/Observation/Transfer Diagnosis at time of Disposition: Rash URI (upper respiratory infection) Qualifiers: URI type: unspecified viral URI Qualified Code(s): J06.9 - Acute upper respiratory infection, unspecified - Discharge Dispostion Disposition: HOME Condition at time of disposition: Stable Decision to Admit order: No - Referrals Referrals: Tameka Ramos MD [Primary Care Provider] - - Patient Instructions Printed Discharge Instructions: DI for Rash, DI for Viral Upper Respiratory Infection -- Adult Additional Instructions: You were evaluated for your rash and sore throat The rash appears infected at this time. Take the bactrim and keflex as prescribed The Keflex will treat a bacterial throat infection Continue all other medications as previously prescribed Follow up with dermatology and your primary care doctor this week Return to the ED for any new or worsening symptoms - Post Discharge Activity Forms/Work/School Notes: Back to Work
== END 2018-08-06 10:00 | disposition home or self-care (01) ==
LOC: JERFT 08:57
DX: J06.9 Acute upper respiratory infection, unspecified (principal); R21 Rash and other nonspecific skin eruption
CPT/HCPCS: 99281-25

== ENCOUNTER 2019-04-24 22:40 | Emergency (ER) | payer OTHER ==
[2019-04-24 22:49] VITALS: BP 108/57; PULSE 89; TEMP 98.3; BMI 41.5
--- NOTE | 2019-04-24 23:05 | PDOC ---
History of Present Illness - General Chief Complaint: Back Pain Stated Complaint: LOWER BACK PAIN/DIZZINESS Time Seen by Provider: 04/24/19 22:54 History Source: Patient - History of Present Illness Initial Comments: 04/24/19 23:21 28 year old female c/o lower back pain for 3 days. 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 denies heavy lifting trauma/ fall. denies urinary symptoms, flank pain. denies numbness or tingling to lower extremities, incontinence of bowel and urine. PMHX: back pain 04/24/19 23:25 Past History - Past Medical History Allergies/Adverse Reactions: Allergies Allergy/AdvReac Type Severity Reaction Status Date / Time shellfish derived Allergy Verified 04/24/19 22:58 Home Medications: Ambulatory Orders Acetaminophen [Tylenol] 650 mg PO PRN 04/24/19 Cyclobenzaprine HCl [Flexeril -] 10 mg PO TID PRN #14 tablet 04/24/19 Ibuprofen 600 mg PO QID PRN #20 tablet 04/24/19 Asthma: No Cancer: No Cardiac Disorders: No COPD: No Diabetes: No HTN: No Seizures: No Thyroid Disease: No - Immunization History Immunization Up to Date: Yes - Psycho Social/Smoking Cessation Hx Smoking History: Never smoked Have you smoked in the past 12 months: No Hx Alcohol Use: No Drug/Substance Use Hx: No Substance Use Type: None Hx Substance Use Treatment: No Review of Systems - Review of Systems Able to Perform ROS?: Yes Is the patient limited Kazakh proficient: No Constitutional: No: Symptoms Reported, See HPI, Chills, Diaphoresis, Fever, Loss of Appetite, Malaise, Night Sweats, Weakness, Weight Stable, Unintentional Wgt. Loss, Unexplained wgt Loss, Other Musculoskeletal: Yes: Back Pain. No: Symptoms Reported, See HPI, Gout, Joint Pain, Joint Swelling, Muscle Pain, Muscle Weakness, Neck Pain, Joint Stiffness, Other *Physical Exam - Vital Signs Last Vital Signs Temp Pulse Resp BP Pulse Ox 98.3 F 89 20 108/57 L 100 04/24/19 22:44 04/24/19 22:44 04/24/19 22:44 04/24/19 22:44 04/24/19 22:44 - Physical Exam General Appearance: Yes: Appropriately Dressed Respiratory/Chest: positive: Lungs Clear, Normal Breath Sounds Cardiovascular: positive: Regular Rhythm, Regular Rate Gastrointestinal/Abdominal: positive: Normal Bowel Sounds, Soft. negative: Tender Musculoskeletal: positive: Other (lumbar area paraspinal area pain. worse with ROM. ). negative: CVA Tenderness, Vertebral Tenderness Extremity: positive: Normal Capillary Refill, Normal Inspection, Normal Range of Motion Integumentary: positive: Dry, Warm, Pale Neurologic: positive: Fully Oriented, Alert, Normal Mood/Affect ED Progress Note - Progress Note Progress Note: 04/24/19 23:24 A: Back pain P: valium toradol Discharge - Discharge Information Problems reviewed: Yes Clinical Impression/Diagnosis: Back pain Qualifiers: Back pain location: low back pain Chronicity: acute Back pain laterality: bilateral Sciatica presence: without sciatica Qualified Code(s): M54.5 - Low back pain Disposition: HOME - Additional Discharge Information Prescriptions: Cyclobenzaprine HCl [Flexeril -] 10 mg PO TID PRN #14 tablet PRN Reason: Muscle Spasms Ibuprofen 600 mg PO QID PRN #20 tablet PRN Reason: Back Pain - Follow up/Referral Referrals: Tameka Ramos MD [Primary Care Provider] - - Patient Discharge Instructions Patient Printed Discharge Instructions: DI for Back Spasm Additional Instructions: Do light stretches Apply ice to the area for the first 24 hours. Then alternate with ice and heat after. Take ibuprofen every 6 hours as needed for pain. Take Flexeril as prescribed for muscle spasm. Flexeril can make you sleepy, do not drive or operate heavy machinery after taking the medication. Follow-up with an orthopedic doctor if symptoms persist. A referral was given to you today. Return to the emergency room for any worsening symptoms. - Post Discharge Activity Work/Back to School Note: Back to Work
[2019-04-24] MEDS ORDERED: diazePAM 5 MG TABLET PO ONE (23:24)
[2019-04-24] MEDS ORDERED: KETOROLAC TROMETHAMINE 30 MG/1 ML VIAL IM ONE (23:24)
[2019-04-24] MEDS ORDERED: diazePAM 5 MG TABLET ONE (23:34)
[2019-04-24] MEDS ORDERED: KETOROLAC TROMETHAMINE 30 MG/1 ML VIAL ONE (23:34)
== END 2019-04-25 00:52 | disposition home or self-care (01) ==
LOC: JER 22:40
PROC: 3E0233Z Introduction of Anti-inflammatory into Muscle, Percutaneous Approach (ICD-10-PCS; principal; 2019-04-24)
DX: M54.5 Low back pain (principal); Z91.013 Allergy to seafood
CPT/HCPCS: 99282-25

== ENCOUNTER 2022-05-30 17:12 | Emergency (ER) | payer OTHER ==
[2022-05-30 17:19] VITALS: BP 136/89; PULSE 87; RESP 20; TEMP 98.6; BMI 43.7
[2022-05-30] MEDS ORDERED: methylPREDNISolone NA SUCC 125 MG/2 ML VIAL IVPB ONE (19:54)
[2022-05-30] MEDS ORDERED: ALBUTEROL SO4 2.5/IPRATROPIUM 0.5 INH SOL 3 ML VIAL.NEB. NEB ONE (19:55)
[2022-05-30] MEDS: ALBUTEROL SO4 2.5/IPRATROPIUM 0.5 INH SOL 3 ML VIAL.NEB. NEB SCH (20:29)
[2022-05-30] MEDS ORDERED: methylPREDNISolone NA SUCC 125 MG/2 ML VIAL ONE (20:33)
[2022-05-30 20:55] LABS: BASO % 0.6 % (0-2.0); EOS % 3.4 % (0-4.5); HEMATOCRIT 32.5 % (32.4-45.2); HEMOGLOBIN 9.8 GM/dL (10.7-15.3); LYMPH % 20.4 % (8-40); MCH 21.3 pg (25.7-33.7); MCHC 30.1 g/dl (32.0-36.0); MEAN PLT VOLUME 7.8 fl (7.5-11.1); MONO % 7.9 % (3.8-10.2); NEUT % 67.7 % (42.8-82.8); PLATELET COUNT 450 10^3/uL (134-434); RBC 4.58 M/mm3 (3.60-5.2); RDW 19.4 % (11.6-15.6); WHITE BLOOD COUNT 11.7 K/mm3 (4.0-10.0)
[2022-05-30 21:16] LABS: CHLORIDE 105 mmol/L (98-107); SODIUM 140 mmol/L (136-145)
[2022-05-30 21:17] LABS: CALCIUM 9.4 mg/dL (8.5-10.1); GLUCOSE,RANDOM 89 mg/dL (74-106)
[2022-05-30 21:18] LABS: ALBUMIN 3.6 g/dl (3.4-5.0); ANION GAP 10 MMOL/L (8-16); BLOOD UREA NITROGEN 9.8 mg/dL (7-18); CO2 25 mmol/L (21-32)
[2022-05-30 21:20] LABS: SGPT/ALT 22 U/L (13-61)
[2022-05-30 21:21] LABS: CREATININE 0.8 mg/dL (0.55-1.3); SGOT/AST 25 U/L (15-37)
[2022-05-30 21:22] LABS: BILIRUBIN,TOTAL 0.2 mg/dL (0.2-1)
[2022-05-30 21:23] LABS: ALK PHOS 64 U/L (45-117)
[2022-05-30 22:31] LABS: ANISOCYTOSIS 3+; MACROCYTOSIS 0
== END 2022-05-30 23:03 | disposition home or self-care (01) ==
LOC: JER 17:12
PROC: 3E0F7GC Introduction of Other Therapeutic Substance into Respiratory Tract, Via Natural or Artificial Opening (ICD-10-PCS; principal; 2022-05-30)
PROC: 3E033GC Introduction of Other Therapeutic Substance into Peripheral Vein, Percutaneous Approach (ICD-10-PCS; 2022-05-30)
DX: J20.9 Acute bronchitis, unspecified (principal); R07.9 Chest pain, unspecified
CPT/HCPCS: 0241U-QW; 36415; 71046-TC-FY; 80053; 84484; 84702; 85025; 93005; 93010; 99285-25